=== PATIENT | male | born 1995 | race Caucasian/White ===

== ENCOUNTER 2025-01-08 17:43 | Emergency (ER) | payer SELFPAY ==
--- NOTE | 2025-01-08 17:47 | EDNOTE_ITS ---
ED Psych RME/HPI General Chief Complaint: Psychiatric Symptoms Stated Complaint: HOLD Time Seen by Provider: 01/08/25 17:47 Arrival date/time: 01/08/25 17:43 Limitations: no limitations RME / HPI RME / HPI Narrative: 29-year-old male who was brought in by police for reported suicidal patient states he has a history of ADD and takes Vyvanse. He denies any chronic medical conditions. He states he uses tobacco, does not abuse, denies drug abuse. Denies any drug allergies. He states he currently studying to test for possible placement in the hospital. He states he was here visiting, was involved in a verbal argument with his sister, he had locked himself in a room full of firearms. He states police were contacted for concerns for suicide. He states he is not suicidal at this time. He states he has no history of suicide ideation or attempts in the past. He denies any thoughts of hurting himself or others. Related Data Allergies Allergy/AdvReac Type Severity Reaction Status Date / Time NKA* Allergy Uncoded 01/08/25 18:03 Review of Systems Review of Systems Systems Reviewed: All systems reviewed, normal except as documented ED Exam General Limitations: Present no limitations General appearance: Present alert Head Head exam: Present atraumatic Eye Eye exam: Present normal appearance, PERRL and EOMI ENT ENT exam: Present normal exam, normal oropharynx and mucous membranes moist Neck Neck exam: Present normal inspection, full ROM and trachea midline Chest Chest inspection: Present normal inspection and symmetric chest wall rise Respiratory Respiratory exam: Present normal lung sounds bilaterally Cardiovascular Cardiovascular exam: Present regular rate, normal rhythm and normal heart sounds Abdominal Exam Abdominal exam: Present soft Extremities Exam Extremities exam: Present normal inspection and full ROM Back Exam Back exam: Present normal inspection and full ROM Neurological Exam Neurological exam: Present alert and oriented X3 Psychiatric Psychiatric exam: Present anxious Skin Skin exam: Present warm, dry, intact and normal color Course Quality Measures none Orders Category Date Time Status EKG (ED ONLY) *Do not use* NOW Care 01/08/25 18:03 Completed Diet Regular Diet 01/09/25 Breakfast Active EKG (ED Only) Stat Exams 01/08/25 18:03 Draft Acetaminophen Stat Lab 01/08/25 18:35 Completed Alcohol, Blood Medical Stat Lab 01/08/25 18:35 Completed CBC Stat Lab 01/08/25 18:35 Completed CMP [Comprehensive Metabolic Panel] Stat Lab 01/08/25 18:35 Completed Drug Screen,Urine Stat Lab 01/08/25 18:34 Completed Salicylate Stat Lab 01/08/25 18:35 Completed Nicotine Patch [Nicoderm Patch] Med 01/08/25 20:03 Discontinued 7 mg TOP X1 ONE Vital Signs Vital signs: Vital Signs Temperature 98.5 F 01/08/25 17:48 Pulse Rate 115 H 01/08/25 17:48 Respiratory Rate 16 01/08/25 17:48 Blood Pressure 130/70 01/08/25 17:48 Pulse Oximetry (%) 97 01/08/25 17:48 Oxygen Delivery Method Room Air 01/08/25 17:48 Psych MDM Narrative MDM Narrative:: Patient's workup was initiated and his workup was unremarkable discussion of his urine drug screen with him. His urine drug screen is positive for marijuana and cocaine. Results were discussed with the patient. At this point he requested a nicotine patch which was ordered. A meal provided. He is medically cleared for mental health evaluation his disposition is currently pending mental health evaluation. At the time of signout, case discussed with attending ER physician. Patient data External records reviewed:: [facility] previous records Clinical information provided by:: patient Social determinants that could affect healthcare access:: substance use Patient has the following chronic illnesses:: n/a How is presenting disease/condition affected by chronic disease/condition?: exacerbated by Evaluation data The following diagnostics were reviewed and interpreted by me:: lab results (CBC is unremarkable. CMP reveals no metabolic derangement. Ethanol levels are negative. Salicylate acid and acetaminophen levels are negative. Urine drug screen is positive for cocaine and marijuana.) and EKG tracing(s) (EKG obtained today at 1830 6 PM reveals normal sinus rhythm at [address] changes or dynamic T waves.) Lab and/or radiology exams considered but not ordered:: n/a Interpretation Summary: Urine drug screens positive for cocaine and marijuana Medications / Prescriptions Medications or Prescriptions considered but not ordered:: n/;a Medication administrations:: Medication Administration History Discontinued Medications Nicotine (Nicotine Patch 7 Mg/24 Hr Patch.Td24) 7 mg TOP X1 ONE Stop: 01/08/25 20:04 Last Admin: 01/08/25 21:19 Dose: 7 mg Documented By: EF See above Consultations Consultation(s) initiated? (list below): Yes Diagnosis Psych Differential Diagnosis: acute psychosis, suicidal ideation, bipolar disorder and drug-induced psychotic disorder Most likely diagnosis given after review of the tests above:: Suicide ideation, cocaine abuse Admission Indicated Admission indicated?: not indicated Admission Request Was there a request for admission?: No Disposition Plan Disposition Plan: other (specify) (Disposition pending mental health evaluation) Discharge Plan Prescriptions/Referrals Referrals: No Primary/Family,Physician [Primary Care Provider] - In 1 week Problem List Clinical Impression: Suicidal ideation, Cocaine abuse Patient/Caregiver Discharge Instructions Education Materials: Understanding the Disease of Addiction, Warning Signs of Suicide and ..., ED Drug Abuse Additional Instructions: - Discontinue substance abuse. - Follow-up with your primary doctor and consider cognitive pertained of-year-old therapy. - Seek emergent care at anytime for any worsening changes. Print Language: Latvian
[2025-01-08 17:48] VITALS: BP 130/70; PULSE 115; RESP 16; TEMP 36.9; O2SAT 97
[2025-01-08 17:51] VITALS: BMI 25.0
--- NOTE | 2025-01-08 18:03 | EKG_ITS ---
[facility] Test Date: 2025-01-08 Pat Name: MEMO NEWBY Department: Room: - Gender: Male Manager Hi: : 1995 Requested By: Tina Ellis Order Number: [id number] Reading MD: Tina Ellis Measurements Intervals [place] Rate: 87 P: 72 NE: 156 QRS: 84 QRSD: 89 T: 52 QT: 323 QTc: 390 Interpretive Statements SINUS RHYTHM No previous ECG available for comparison /[id number]/[id number]
[2025-01-08 18:49] LABS: Basophils # (Auto) 0.0 Thou/mm3 (0.0-0.2); Basophils % (Auto) 1 % (0-2.5); Eosinophils # (Auto) 0.1 Thou/mm3 (0.0-0.5); Eosinophils % (Auto) 2 % (0-10); Hematocrit 42.0 % (41.0-53.0); Hemoglobin 14.2 g/dL (13.5-16.0); Immature Granulocytes Auto 0.01 Thou/mm3 (0.00-0.00); Lymphocytes # (Auto) 1.4 Thou/mm3 (1.0-4.8); Lymphocytes % (Auto) 25 % (10-50); Mean Corpuscular HGB Conc 33.8 g/dl (31.0-37.0); Mean Corpuscular Hemoglobin 28.9 pg (25.0-35.0); Mean Corpuscular Volume 85 fL (80-100); Monocytes # (Auto) 0.4 Thou/mm3 (0.0-0.8); Monocytes % (Auto) 7 % (0-12); Neutrophils # (Auto) 3.8 Thou/mm3 (1.8-7.7); Neutrophils % (Auto) 65 % (37-80); Nucleated Red Blood Cell # 0.00 Thou/mm3 (0.00-0.00); Nucleated Red Blood Cell % 0 /100 WBC (0); Platelet Count 172 Thou/mm3 (140-440); RDW Standard Deviation 39.8 fL (35.1-43.9); Red Blood Count 4.92 Miln/mm3 (4.50-5.90); White Blood Count 5.8 Thou/mm3 (3.8-10.6)
[2025-01-08 19:14] LABS: Acetaminophen < 2.0 mcg/mL (10.0-20.0); Alanine Aminotransferase 28 U/L (10-49); Albumin, Serum 4.5 gm/dL (3.5-5.0); Albumin/Globulin Ratio 1.9 (1.2-2.2); Alcohol, Blood Medical < 3.0 mg/dL (0-10.0); Alkaline Phosphatase 62 U/L (46-116); Anion Gap 9 (7-16); Aspartate Amino Transferase 30 U/L (0-34); BUN/Creatinine Ratio 13 Ratio (12-20); Bilirubin,Total 0.8 mg/dL (0.3-1.2); Blood Urea Nitrogen 15 mg/dL (9-23); Calcium 9.8 mg/dL (8.3-10.6); Calcium (Corrected) 9.8 mg/dL (8.5-10.1); Carbon Dioxide 27.0 mMol/L (20.0-31.0); Chloride 109 mMol/L (98-107); Creatinine (Component) 1.2 mg/dL (0.6-1.3); Estimated Creatinine Clearance 86.5 mL/min (>60); Globulin 2.4 gm/dL (2.3-3.5); Glucose 99 mg/dL (74-106); Osmolality,Calculated 289 (275-295); Potassium 3.8 mMol/L (3.4-5.1); Salicylate < 3.0 mg/dL; Sodium 145 mMol/L (136-145); Total Protein 6.9 gm/dL (5.7-8.2); eGFR > 60 See Note
[2025-01-08 19:24] LABS: Amphetamine/Methamp Scrn,U Negative (Negative); Barbiturate Screen,Urine Negative (Negative); Benzodiazepines Screen,Urine Negative (Negative); Benzoylecgonine Screen, Ur Positive (Negative); Fentanyl Screen,Urine Negative (Negative); Opiate Screen,Urine Negative (Negative); THC Screen,Urine Positive (Negative)
[2025-01-08] MEDS: NICOTINE PATCH 7 MG/24 HR PATCH.TD24 TOP (21:19)
--- NOTE | 2025-01-08 23:09 | PD.EDADDENDU ---
Emergency Room Addendum <Tatiana Pearce - Last Filed: 01/09/25 02:59> Addendum Narrative: I took over the care from previous shift provider, Tina Borges PA-C, at 2300 on 01/08/2025. See previous notes for complete H & P and ED course. I was asked to take over this patient regarding crisis evaluation in the morning. Patient is signed out to Dr. Weldon at 0600 on 01/09/25 pending crisis evaluation. Clement Chong MD <Clement Chong MD - Last Filed: 01/09/25 03:16> Addendum Narrative: I took over the care from Tina Borges PA-C at 2300 on 01/08/2025. See previous notes for complete H & P and ED course. Pending evaluation by our ED Blueprint Assembler in the morning. At 6 AM on 01/09/2025, the care of the patient was transferred to Dr. Weldon. During my watch, the patient remained stable. Clement Chong MD
[2025-01-09 06:05] VITALS: BP 120/68; PULSE 111; RESP 16; TEMP 36.6; O2SAT 98
--- NOTE | 2025-01-09 07:05 | PC.CC ---
Pt is a 29-year-old male who was BIB by Ant JIMENEZ for reported suicidal patient states he has a history of ADD and takes Vyvanse. Denies drug use, Denies SI/HI. Per PPD, pt states he was here visiting, was involved in a verbal argument with his sister, he had locked himself in a room full of firearms. He states he has no history of suicide ideation or attempts in the past. He denies any thoughts of hurting himself or others. ASW to assess pt as pt is now medically cleared.
[2025-01-09 07:44] VITALS: BP 114/76; PULSE 54; RESP 18; TEMP 36.5; O2SAT 97
--- NOTE | 2025-01-09 07:52 | PC.NURSE ---
Report received from pm nurse, patient lying in gurney, moderatly anxious, states he is waiting to talk to the hospital social worker to get out of here , patient denies SI/HI, talkative, however, is cooperative. Skin warm, dry and pink. 1:[address] for patients safety, Patient medically cleared will inform s/s worker regarding mental health evaluation.
--- NOTE | 2025-01-09 09:39 | EDNOTE_ITS ---
Emergency Room Addendum Addendum Narrative: 0600: Care assumed from Dr. Chong, the previous shift emergency physician. Past medical, surgical, social and family history reviewed. Vitals and home medications reviewed. I will assume the care of the patient at this time, pending mental health evaluation. Patient had been medically cleared by previous physician. Please refer to the emergency department record for history and examination from initial visit.?The following addendum documentation note is intended to reflect any pending information, findings, or radiology results not included in the patient?s initial chart. Patient has been evaluated by ED respite care provider and rescinded the 5150 hold. States they have a safety plan in place. Patient has remained stable through ED course and will DC home.
--- NOTE | 2025-01-09 09:42 | PC.CC ---
This is a 29-year-old, , male who presented to the ED on 01/08/2025 on a 5150 hold for danger to self/others by [place] [employer] (PPD). Per Officer Ladan, patient was placed on hold due threatening to shot himself with his firearm. ASW-Agnes Crenshaw met with patient [id number] to complete assessment. ASW introduced self, role, and reason for assessment. ASW disclosed limits of confidentiality as well. Patient appeared alert and oriented to self, place, and situation. Patient was pleasant; his mood appeared calm and his behavior appeared remorseful. Patient?s thought process was linear and organized. No signs of delusions, paranoid or AVH. Pt denies SI/HI, admits to h/o ADHD and states he takes Vyanese for ADHD treatment. Pt admitted to taking Cocaine a few days ago along with smoking marijuana. Pt admitted to drinking for the past few days and partying with friends. Pt reports he is originally from [place] but now lives in [place], [place]. Pt reports he comes to [place] on holidays to visit family and friends. Pt reports he was here for the 06 of January weekend and had been partying since his stay. Pt reports he was here for the 06 of January weekend because he was participating in a shooting range competition in [place]. Pt reported that this was supposed to be a fun weekend for him, as he hardly visits [place]. Pt reported that his family had been upset with him due to him partying the entire weekend. Pt admitted to doing a bump of cocaine and stated that his mother and sister were upset with him due to that. Pt reported he and his sister got into a verbal argument, which turned into a wrestling match. Pt reported to get away from his sister and mother, he locked himself in the restroom with his firearm on him, but denied ever using the weapon as a threat to end his life. Pt reported that when he locked himself in the restroom it led his mother and sister to fear for his safety and that is when they called LE. Pt reported he has no intent to end his life and denied saying he wanted to end his life. Pt reported he was cooperative with LE and respectful. ASW contacted collateral Candice (pts mother) who confirmed the series of events and the argument between the pts sister and pt. Candice reported that she told the pt and daughter, How would you like it if I were to or kill myself, then you guys wouldn't have anyone. Pt then replied by saying, Well how would you like it if I were to , and she continued to report that is when the pt locked himself in the restroom, which led her to fear for his safety. Collateral reported that the pt does not have h/o of SI, no h/o mental health hospitalization as well. Collateral disclosed that the pt has h/o of cocaine use since age 17-18 and alcoholism. Collateral admitted that the pt does not reside in [place] and does not get in trouble in [place]. 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 Collateral stated that when pt comes to [place], that is when he goes on binges and states she prefer for him not to come to [place] so he can stay sober. Collateral reported that she is willing to safety plan with the pt if that is decided. Collateral reported that she has removed all the firearm from the home and took it to [place] with the pts maternal uncle and it is in a firearm safe. Collateral reported that the pt does not have any firearm on him or access to one. Collateral reported that she and the maternal uncle will be picking up the pt upon discharge, if that is the plan. ASW informed collateral that song writer will still need to staff the case with my supervisor char house and a decision will be made. ASW staff with PASQUALE CALLOWAY and it was determined that a safety plan would be the course of action. ASW informed RN and ER provider and they agreed. ASW informed pt and pts family. The safety plan includes to confiscate the firearm to a safe place, which the collateral has already done so; pt will d/c to mother and uncle and they will transport him back to [place]. Pt agrees to seek MH therapeutic services in [place] for additional supportive services.
[2025-01-09 10:00] VITALS: BP 113/67; PULSE 56; RESP 20; TEMP 36.7; O2SAT 99
--- NOTE | 2025-01-09 10:04 | PC.CC ---
This is a 29-year-old, , male who presented to the ED on 01/08/2025 on a 5150 hold for danger to self/others by [place] [employer] (PPD). Per Officer Ladan, patient was placed on hold due threatening to shot himself with his firearm. ASW-Agnes Crenshaw met with patient [id number] to complete assessment. ASW introduced self, role, and reason for assessment. ASW disclosed limits of confidentiality as well. Patient appeared alert and oriented to self, place, and situation. Patient was pleasant; his mood appeared calm and his behavior appeared remorseful. Patient?s thought process was linear and organized. No signs of delusions, paranoid or AVH. Pt denies SI/HI, admits to h/o ADHD and states he takes Vyanese for ADHD treatment. Pt admitted to taking Cocaine a few days ago along with smoking marijuana. Pt admitted to drinking for the past few days and partying with friends. Pt reports he is originally from [place] but now lives in [place], [place]. Pt reports he comes to [place] on holidays to visit family and friends. Pt reports he was here for the 06 of January weekend and had been partying since his stay. Pt reports he was here for the 06 of January weekend because he was participating in a shooting range competition in [place]. Pt reported that this was supposed to be a fun weekend for him, as he hardly visits [place]. Pt reported that his family had been upset with him due to him partying the entire weekend. Pt admitted to doing a bump of cocaine and stated that his mother and sister were upset with him due to that. Pt reported he and his sister got into a verbal argument, which turned into a wrestling match. Pt reported to get away from his sister and mother, he locked himself in the restroom with his firearm on him, but denied ever using the weapon as a threat to end his life. Pt reported that when he locked himself in the restroom it led his mother and sister to fear for his safety and that is when they called LE. Pt reported he has no intent to end his life and denied saying he wanted to end his life. Pt reported he was cooperative with LE and respectful. ASW contacted collateral Candice (pts mother) who confirmed the series of events and the argument between the pts sister and pt. Candice reported that she told the pt and daughter, How would you like it if I were to or kill myself, then you guys wouldn't have anyone. Pt then replied by saying, Well how would you like it if I were to , and she continued to report that is when the pt locked himself in the restroom, which led her to fear for his safety. Collateral reported that the pt does not have h/o of SI, no h/o mental health hospitalization as well. Collateral disclosed that the pt has h/o of cocaine use since age [age] and alcoholism. Collateral admitted that the pt does not reside in [place] and does not get in trouble in [place]. 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 Collateral stated that when pt comes to [place], that is when he goes on binges and states she prefer for him not to come to [place] so he can stay sober. Collateral reported that she is willing to safety plan with the pt if that is decided. Collateral reported that she has removed all the firearm from the home and took it to [place] with the pts maternal uncle and it is in a firearm safe. Collateral reported that the pt does not have any firearm on him or access to one. Collateral reported that she and the maternal uncle will be picking up the pt upon discharge, if that is the plan. ASW informed collateral that health science writer will still need to staff the case with my quality assurance supervisor and a decision will be made. ASW staff with PASQUALE CALLOWAY and it was determined that a safety plan would be the course of action. ASW informed RN and ER provider and they agreed. ASW informed pt and pts family. The safety plan includes to confiscate the firearm to a safe place, which the collateral has already done so; pt will d/c to mother and uncle and they will transport him back to [place]. Pt agrees to seek MH therapeutic services in [place] for additional supportive services.
== END 2025-01-09 11:49 | disposition home or self-care (01) ==
PROVIDERS: Physician Assistant Medical; Emergency Provider Emergency Medicine
DX: R45.851 Suicidal ideations (principal); F14.10 Cocaine abuse, uncomplicated
CPT/HCPCS: 36415; 80053; 80307; 80320; 80329; 85025; 96127; 99284; A9270; G0480